=== PATIENT | male | born 1985 | race Caucasian/White ===

== ENCOUNTER → 2017-05-05 | Outpatient (CLI) | payer OTHER ==
--- NOTE | ~2017-05-05 | EE ---
Unit #: [id number] #: [id number] Patient: JACKSON QURESHI [id number] [address] [address] [id number] O MR#: [id number] NAME: JACKSON QURESHI : 1985 SEX: M STUDY DATE/TIME: 05/05/2017 UNIT: [facility] ROOM: STUDY DESCRIPTION: Attending Physician: Haley Ventura M.D. Referring Physician: Haley Ventura M.D. Primary Care Physician: Vannesa Hill M.D. NEURODIAGNOSTICS REPORT EXAM EEG. REASON FOR STUDY Seizures. TECH Bell. TECHNICAL INFORMATION This is a routine EEG performed using the standard international 10/20 system with electrode placement. Photic stimulation was performed. Hyperventilation was also performed. REPORT Throughout the entire study the best background rhythm seen is approximately 10 Hz. This rhythm is seen in both posterior head regions symmetrically and does attenuate to eye opening and closure. Photic stimulation was performed which did not elicit any epileptiform abnormalities. Hyperventilation was also performed which did not produce any abnormal buildup. There was some frontal artifact seen. There was no sleep recorded during the EEG. Throughout the entire study, there were no electrocardiographic seizures recorded nor were there any epileptiform abnormalities seen. INTERPRETATION This is a normal awake EEG. A normal EEG does not rule out the possibility of a seizure disorder. Clinical correlation is advised. Dictated by... Ramesh Nolan II., M.D. GWS/arian TD: 05/06/2017 12:03 JOB #: [id number] Unit #: [id number] #: [id number] Patient: JACKSON QURESHI NEURODIAGNOSTICS REPORT Page 1 of 1 X NEURODIAGNOSTICS REPORT
--- NOTE | ~2017-05-05 | MR17 ---
[facility] A Service of [facility] & [facility] / [facility] RADIOLOGY TEXT RESULTS PATIENT: JACKSON QURESHI LOCATION: [facility] : [birth year] UNIT #: [id number] AGE: [address]: HALEY LEVI SEX: M ORDER DR: [id number] [facility] [address] [place], [place] [address] [id number] O MR#: [id number] Acc #: [id number] NAME: JACKSON QURESHI : 1985 SEX: M STUDY DATE/TIME: 05/05/2017 8:20 UNIT: [facility] ROOM: STUDY DESCRIPTION: MR Brain WWo Contrast Attending Physician: Haley Levi M.D. Referring Physician: Haley Levi M.D. Ordering Physician: Physician Non-Staff Primary Care Physician: Vannesa Hill M.D. MRI CENTER REPORT This report is preliminary unless electronic signature is present. EXAM MRI with and without HISTORY Seizure disorder, 32-year-old male patient with history of seizures since age 16. Patient has had trauma from the seizures with 7 seizures in the past week and a half, last one 3 days ago. Per patient Chiari malformation. History of opioid addiction, currently on Suboxone. TECHNIQUE MRI of the brain was performed prior to and following intravenous administration of 17 mL of MultiHance. 1.5T imaging technique utilized with a seizure protocol. COMPARISON STUDIES Comparison is earlier head CT from 05/07/2013. FINDINGS There is no evidence for a recent ischemic insult on the diffusion series. There is no extra axial fluid collection. There is no convincing evidence for a Chiari-I malformation on the current study. Midline structures are unremarkable. There is no MRI evidence for intracranial hemorrhage. The major intracranial flow voids are maintained. The mastoid air cells are clear. There is mucosal thickening in the paranasal sinuses. No air-fluid level in the visualized paranasal sinuses. Quiñonez-white junction is relatively well-maintained. There is no convincing evidence for mesial temporal sclerosis. If there is however, an EEG, which shows a seizure focus direct comparison would be helpful. Nothing to suggest quiñonez matter heterotopia. Following contrast administration, there is no pathologic intracranial enhancement. No intracranial mass lesion or mass effect is suspected. [facility] A Service of [facility] & [facility] / [facility] RADIOLOGY TEXT RESULTS PATIENT: JACKSON QURESHI LOCATION: [facility] : 83 UNIT #: [id number] AGE: [address]: HALEY LEVI SEX: M ORDER DR: IMPRESSION 1. Essentially normal MRI of the brain with and without contrast for age group. If there is an EEG, which shows a seizure focus direct comparison is recommended. 2. There is some paranasal sinus disease but no sinus air-fluid level. Dictated by... Lana Izquierdo M.D. THIS IS AN ELECTRONICALLY VERIFIED REPORT Lana Izquierdo M.D. at 05/05/2017 5:42 PM Esmer TD: 05/05/2017 16:02 JOB #: [id number] MRI CENTER REPORT Page 1 of 1 COPY
== END | disposition home or self-care (01) ==
LOC: CMRI 07:38
DX: Q07.00 Arnold-Chiari syndrome without spina bifida or hydrocephalus (principal); G40.209 Localization-related (focal) (partial) symptomatic epilepsy and epileptic syndromes with complex partial seizures, not intractable, without status epilepticus; J32.9 Chronic sinusitis, unspecified
CPT/HCPCS: 70553; 95816; A9577